=== PATIENT | female | born 1975 | race Two or more races ===

== ENCOUNTER 2024-07-13 14:30 | Outpatient (CLI) | payer OTHER | END 2024-07-13 14:40 | disposition home or self-care (01) | LOC: PPH VACUNA 14:30 | PROVIDERS: ATTEND Emergency Medicine Pediatric Emergency Medicine | DX: Z23 Encounter for immunization (principal) ==

== ENCOUNTER 2024-10-31 14:17 | Outpatient (CLI) | payer OTHER | END 2024-10-31 14:24 | disposition home or self-care (01) | LOC: MAMO-SONO 14:17 | PROVIDERS: ATTEND Obstetrics & Gynecology | DX: Z12.31 Encounter for screening mammogram for malignant neoplasm of breast (principal) ==